=== PATIENT | female | born 1995 | race Caucasian/White ===

== ENCOUNTER 2017-03-03 16:19 | Emergency (ER) | payer BC ==
[~2017-03-03] VITALS: Ht 160 cm; Wt 49.9 kg
[2017-03-03 16:26] VITALS: BP_SYST 107
[2017-03-03] MEDS ORDERED: NACL 0.9% 1,000 ML IV ONE (17:00)
[2017-03-03 17:13] LABS: BILIRUBIN,URINE NEGATIVE (NEGATIVE); BLOOD, URINE NEGATIVE (NEGATIVE); CLARITY/URINE HAZY (CLEAR); COLOR,URINE YELLOW (YELLOW); GLUCOSE,URINE NEGATIVE (NEGATIVE); KETONES,URINE NEGATIVE (NEGATIVE); LEUKOCYTE ESTERASE ,URINE 2+ (NEGATIVE); NITRITE, URINE NEGATIVE (NEGATIVE); PH,URINE 6.5 (5.0-8.0); PROTEIN URINE NEGATIVE (NEGATIVE); UROBILINOGEN,URINE 0.2 (0.2-1.0)
[2017-03-03 17:14] LABS: BASOPHILS % (AUTO) 0.3 % (0.0-2.0); EOSINOPHILS % (AUTO) 0.4 % (0.0-4.0); HEMATOCRIT 36.2 % (36-48); HEMOGLOBIN 12.2 g/dL (12.0-16.0); LYMPHOCYTES # (AUTO) 1.9 K/uL (1.0-5.5); LYMPHOCYTES % (AUTO) 23.7 % (20.5-51.5); MEAN CORPUSCULAR HEMOGLOBIN 33 pg (27-31); MEAN CORPUSCULAR HGB CONC 34 % (32-36); MEAN CORPUSCULAR VOLUME 97 fL (79.0-98.0); MONOCYTES # (AUTO) 0.5 K/uL (0.0-1.0); MONOCYTES % (AUTO) 6.6 % (1.7-9.3); NEUTROPHILS # (AUTO) 5.8 K/uL (1.8-7.7); PLATELET COUNT (AUTO) 191 K/uL (130-430); RED BLOOD CELL COUNT(AUTO) 3.73 MIL/uL (4.2-6.2); RED CELL DISTRIBUTION WIDTH 11.7 % (9.0-15.0); WHITE BLOOD COUNT (AUTO) 8.2 K/uL (4.8-10.8)
[2017-03-03 17:32] LABS: CALCIUM 9.4 mg/dL (8.4-11.0); CREATININE 0.53 mg/dL (0.55-1.30); POTASSIUM 3.5 mmol/L (3.5-5.1)
[2017-03-03 17:39] LABS: RBC,URINE NONE SEEN /HPF (0-3)
[2017-03-03 17:40] LABS: BACTERIA,URINE MODERATE /HPF (None Seen)
[2017-03-03 17:41] LABS: MUCUS,URINE 2+ /LPF (None Seen)
[2017-03-03] MEDS ORDERED: ACETAMINOPHEN 500 MG TABLET PO ONE (17:45)
[2017-03-03 18:00] LABS: ALBUMIN 3.6 g/dL (3.4-4.8); TOTAL BILIRUBIN 0.5 mg/dL (0.0-1.0)
[2017-03-03 18:50] VITALS: BP_SYST 106
[2017-03-05 00:22] LABS: CHLAMYDIA TRACHOMATIS NAA Negative (Negative); NEISSERIA GONORRHOEAE NAA Negative (Negative)
== END 2017-03-03 18:50 | disposition home or self-care (01) ==
LOC: SED 16:19
DX: O23.41 Unspecified infection of urinary tract in pregnancy, first trimester (principal); Z3A.01 Less than 8 weeks gestation of pregnancy
CPT/HCPCS: 36415; 76856; 80053; 81000; 81025; 83690; 84702; 85025; 86901; 87086; 87210; 87491; 87591; 96360; 99285; J7030

== ENCOUNTER 2018-08-29 20:09 | Emergency (ER) | payer BC ==
[~2018-08-29] VITALS: Ht 160 cm; Wt 59.0 kg
[2018-08-29 20:09] VITALS: BP_SYST 108
--- NOTE | 2018-08-29 20:45 | NUR ---
Patient to ER bed 6 to gown for evaluation. Side rails up.
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
--- NOTE | 2018-08-29 21:00 | NUR ---
Dr. Cunningham at bedside.
[2018-08-29] MEDS ORDERED: DIPH-TET-PERTUS Vaccine 0.5 ML VIAL (ADACEL) I.M. ONE (21:30)
--- NOTE | 2018-08-29 21:38 | NUR ---
Dr. Cunningham at bedside, necrotic piece of avulsed skin removed. No bleeding to site. Wound cleansed with betadine and NS, pat dry with sterile 4x4 gauze, bacitracin applied, covered with non-adherent dsg and secured non-constrictively with Kerlex. Pt tolerated well.
[2018-08-29] MEDS ORDERED: BACITRACIN 1 GM OINT TP ONE ×2 (21:45→21:46)
[2018-08-29 21:46] VITALS: BP_SYST 112
--- NOTE | 2018-08-29 21:46 | NUR ---
Patient given written and verbal discharge instructions and verbalizes understanding. ER MD discussed with patient the results and treatment provided. Patient in stable condition. ID arm band removed. Rx of Motrin and Clindamycin given. Patient educated on pain management and to follow up with PMD. Pain Scale 1/10. Opportunity for questions provided and answered. Medication side effect fact sheet provided.
== END 2018-08-29 21:46 | disposition home or self-care (01) ==
LOC: SED 20:09
DX: S91.311A Laceration without foreign body, right foot, initial encounter (principal); W26.8XXA Contact with other sharp object(s), not elsewhere classified, initial encounter; Y93.89 Activity, other specified; Y92.89 Other specified places as the place of occurrence of the external cause; Y99.8 Other external cause status
CPT/HCPCS: 90715; 99283